=== PATIENT | male | born 1945 | race Caucasian/White ===

== ENCOUNTER → 2019-03-31 | Outpatient (CLI) | payer OTHER ==
--- NOTE | 2019-03-31 12:16 | REP ---
DIGITAL BILATERAL DIAGNOSTIC MAMMOGRAPHY WITH CAD, 3D TOMOGRAPHY, AND BILATERAL SUBAREOLAR SONOGRAPHY: HISTORY: Possible gynecomastia pattern versus mass left breast on outside CT study. MAMMOGRAPHIC FINDINGS: There is flame-shaped fibroglandular soft tissue in the retroareolar regions bilaterally, left slightly more prominent than right. No mass-like properties are seen on standard or tomographic images. No microcalcifications or worrisome skin changes are appreciated. Findings are most compatible mammographically with gynecomastia. SONOGRAPHIC FINDINGS: Bilateral subareolar sonography demonstrates hypoechoic fibroglandular tissue bilaterally in an area fairly similar, slightly more prominent on the left compared to the right. 3.5 cm greatest diameter on the left versus 2.9 cm on the right. Findings are compatible with gynecomastia. No mass-like properties are seen. No architectural distortion or acoustic shadowing is seen. IMPRESSION: BIRADS 2: BI-RADS/ACR category 2 mammogram. Benign Findings. Findings consistent with bilateral and essentially symmetric gynecomastia. BI-RADS category 2 benign findings. Clinical followup is advised. This mammogram was interpreted with the aid of an FDA-approved computer-aided detection system. The patient states that she/he has not had a clinical breast exam in over a year. The patient letter being requested is male letter M2. Electronically Signed by Beka Lovelace MD 03/31/2019 01:10 P
== END ==
LOC: M RAD 09:44
PROVIDERS: ATTEND Nurse Practitioner Family
DX: R92.0 Mammographic microcalcification found on diagnostic imaging of breast (principal)
CPT/HCPCS: 76642; 77066; G0279

== ENCOUNTER → 2020-11-14 | Outpatient (CLI) | payer MEDICARE, OTHER ==
--- NOTE | 2020-11-14 14:28 | REP ---
INDICATION: RESTAGING PULMONARY LUNG NODULE R91.1. COMPARISON: Comparison is made with CT study of the chest from [facility] dated 31 October 2020. TECHNIQUE: Sixty-five minutes following the intravenous injection of a 8.73 mCi dose of F-18 FDG, three-dimensional PET scintigraphy is acquired from the skull base to the proximal thighs. Triplanar noncontrast CT scanning is acquired through the same anatomic range for attenuation correction, and image registration with scan parameters optimized to minimize radiation exposure to the patient. PET scintigraphy and CT datasets were fused and displayed on a workstation with multiplanar and projection display capability. FINDINGS: Head and neck soft tissues are unremarkable. In the chest, there is no abnormal hypermetabolic nikole uptake in either lung hilus or in the mediastinum. No abnormal hypermetabolic uptake is seen at the gastroesophageal junction. There is evidence of hiatal hernia. The 2.5 cm non solid nodule in the right middle lobe shows visible but non hypermetabolic FDG accumulation. Maximum SUV value in this nodule is 2.15. No other abnormal pulmonary parenchymal uptake is seen. In the abdomen and pelvis, normal hepatic, splenic, gastrointestinal, and genitourinary FDG distribution is seen. Splenomegaly is again observed. IMPRESSION: There is visible but non hypermetabolic uptake in the non solid nodule in the right middle lobe. This does not exclude low grade malignancy. Continued CT follow-up is recommended. No other abnormal hypermetabolic uptake focus seen. <Electronically signed by Serafin Lovelace > 11/14/20 [id number]
== END ==
LOC: M PLARAD 09:47
PROVIDERS: ATTEND Family Medicine
DX: R91.1 Solitary pulmonary nodule (principal); R16.1 Splenomegaly, not elsewhere classified; K44.9 Diaphragmatic hernia without obstruction or gangrene
CPT/HCPCS: 78815; A9552